=== PATIENT | female | born 2000 | race Caucasian/White ===

== ENCOUNTER 2019-08-13 08:42 | Emergency (ER) | payer OTHER ==
[2019-08-13 08:47] VITALS: BP 127/81; PULSE 103; RESP 18; TEMP 98.4
[2019-08-13] MEDS ORDERED: PROPARACAINE 0.5% OPHTH DROPS 15 ML BTL BOTH EYES STA (08:52)
--- NOTE | 2019-08-13 09:14 | ED ---
Eye Problem HPI - General Chief complaint: Eye Problems Stated complaint: Swollen eye Time Seen by Provider: 08/13/19 08:52 Source: patient, RN notes reviewed, old records reviewed Mode of arrival: ambulatory Limitations: no limitations - History of Present Illness Initial comments: 18 year old female presents with right eye swelling and irritation. She report this has happened for one day. She reports a small pimple on nose and right cheek. She reports she woke up with eye swollen and crusted over, and states htat she had her dog sneeze in her eye yesterday. She denies visual changes. Denies pain with EOM or bright lights. - Related Data Previous Rx's Medication Instructions Recorded Cephalexin [Keflex] 500 mg PO Q8HR #21 cap 08/13/19 Ciprofloxacin Ophth Soln [Ciloxan 1 drops RIGHT EYE Q4HR #1 bottle 08/13/19 0.3% Ophth Soln] Allergies Allergy/AdvReac Type Severity Reaction Status Date / Time No Known Allergies Allergy Verified 08/13/19 08:47 Review of Systems ROS Statement: Those systems with pertinent positive or pertinent negative responses have been documented in the HPI. ROS Other: All systems not noted in ROS Statement are negative. Past Medical History Past Medical History: No Reported History History of Any Multi-Drug Resistant Organisms: None Reported Past Surgical History: No Surgical Hx Reported Past Psychological History: No Psychological Hx Reported Smoking Status: Current every day smoker Past Alcohol Use History: None Reported Past Drug Use History: None Reported General Exam - General Exam Comments Initial Comments: Pleasant 18 year old female, no distress. Limitations: no limitations General appearance: alert, in no apparent distress Head exam: Present: atraumatic, normocephalic, normal inspection Eye exam: Present: normal appearance, PERRL, EOMI, other (minimal right eye erythhema, drainage. Surrounding lower eyelid erythema and edema. Small papule at nose. ). Absent: scleral icterus, conjunctival injection, periorbital swelling ENT exam: Present: normal exam, mucous membranes moist Neck exam: Present: normal inspection. Absent: tenderness, meningismus, lymphadenopathy Respiratory exam: Present: normal lung sounds bilaterally. Absent: respiratory distress, wheezes, rales, rhonchi, stridor Cardiovascular Exam: Present: regular rate, normal rhythm, normal heart sounds. Absent: systolic murmur, diastolic murmur, rubs, gallop, clicks GI/Abdominal exam: Present: soft, normal bowel sounds. Absent: distended, tenderness, guarding, rebound, rigid Neurological exam: Present: alert, oriented X3, CN II-XII intact Psychiatric exam: Present: normal affect, normal mood Skin exam: Present: warm, dry, intact, normal color. Absent: rash Course Vital Signs 08/13/19 08:44 Temperature 98.4 F Pulse Rate 103 H Respiratory 18 Rate Blood Pressure 127/81 O2 Sat by Pulse 100 Oximetry Medical Decision Making - Medical Decision Making 18 year old female with R eye irritation and swelling. Patient has concern for minor periorbital celluitis which could be from pimple on nose. Discussed DC with keflex. PAtient will also use antibiotic eyedrops. Disucssed PCP follow up. Disposition Clinical Impression: Cellulitis of eyelid, Conjunctivitis Disposition: HOME SELF-CARE Condition: Good Instructions (If sedation given, give patient instructions): Periorbital Cellulitis in Adults (ED), Conjunctivitis (ED) Additional Instructions: Please use medication as discussed. Please follow up with family doctor if symptoms have not improved over the next two days. Please return to the emergency room if your symptoms increase or worsen or for any other concerns. Prescriptions: Ciprofloxacin Ophth Soln [Ciloxan 0.3% Ophth Soln] 1 drops RIGHT EYE Q4HR #1 bottle Cephalexin [Keflex] 500 mg PO Q8HR #21 cap Is patient prescribed a controlled substance at d/c from ED?: No Referrals: None,Stated [Primary Care Provider] - 1-2 days Paddy Rogers MD [STAFF PHYSICIAN] - 1-2 days Time of Disposition: 09:13
== END 2019-08-13 09:37 | disposition home or self-care (01) ==
LOC: EC 08:42
DX: H00.032 Abscess of right lower eyelid (principal); H10.9 Unspecified conjunctivitis; R23.8 Other skin changes; F17.200 Nicotine dependence, unspecified, uncomplicated
CPT/HCPCS: 99283

== ENCOUNTER 2019-10-28 15:33 | Emergency (ER) | payer OTHER ==
[2019-10-28] MEDS ORDERED: ONDANSETRON ODT 4 MG TAB PO STA (16:16)
--- NOTE | 2019-10-28 16:18 | ED ---
General Adult HPI - General Chief complaint: Fever Stated complaint: Fever,vomiting Time Seen by Provider: 10/28/19 15:40 Source: patient, RN notes reviewed, old records reviewed Mode of arrival: ambulatory Limitations: no limitations - History of Present Illness Initial comments: This is a 18-year-old female who presents emergency department stating that she vomited 2 times on Saturday slept most of the day yesterday woke up today and was dry heaving most that they just prior to arrival he vomited again. Patient denies any diarrhea. Patient has any fever chills per patient denies any abdominal pain. Patient denies any chest pain difficulty breathing first breath per patient denies being lightheaded or dizzy. Patient states after she vomited she feels pretty good. Patient states she's not she is not sexually active. - Related Data Previous Rx's Medication Instructions Recorded Cephalexin [Keflex] 500 mg PO Q8HR #21 cap 08/13/19 Ciprofloxacin Ophth Soln [Ciloxan 1 drops RIGHT EYE Q4HR #1 bottle 08/13/19 0.3% Ophth Soln] Ondansetron Odt [Zofran Odt] 4 mg PO Q8HR PRN #10 tab 10/28/19 Allergies Allergy/AdvReac Type Severity Reaction Status Date / Time No Known Allergies Allergy Verified 10/28/19 15:43 Review of Systems ROS Statement: Those systems with pertinent positive or pertinent negative responses have been documented in the HPI. ROS Other: All systems not noted in ROS Statement are negative. Past Medical History Past Medical History: No Reported History History of Any Multi-Drug Resistant Organisms: None Reported Past Surgical History: No Surgical Hx Reported Past Psychological History: No Psychological Hx Reported Smoking Status: Current every day smoker Past Alcohol Use History: None Reported Past Drug Use History: None Reported General Exam - General Exam Comments Initial Comments: GENERAL: Patient is well-developed and well-nourished. Patient is nontoxic and well- hydrated and is in no acute distress. ENT: Neck is soft and supple. No significant lymphadenopathy is noted. Oropharynx is clear. Moist mucous membranes. Neck has full range of motion without eliciting any pain. EYES: The sclera were anicteric and conjunctiva were pink and moist. Extraocular movements were intact and pupils were equal round and reactive to light. Eyelids were unremarkable. PULMONARY: Unlabored respirations. Good breath sounds bilaterally. No audible rales rhonchi or wheezing was noted. CARDIOVASCULAR: There is a regular rate and rhythm without any murmurs gallops or rubs. ABDOMEN: Soft and nontender with normal bowel sounds. No palpable organomegaly was noted. There is no palpable pulsatile mass. SKIN: Skin is clear with no lesions or rashes and otherwise unremarkable. NEUROLOGIC: Patient is alert and oriented x3. Cranial nerves II through XII are grossly intact. Motor and sensory are also intact. Normal speech, volume and content. Symmetrical smile. MUSCULOSKELETAL: Normal extremities with adequate strength and full range of motion. LYMPHATICS: No significant lymphadenopathy is noted PSYCHIATRIC: Normal psychiatric evaluation. Limitations: no limitations Course Vital Signs 10/28/19 10/28/19 15:40 16:10 Temperature 98.2 F 99 F Pulse Rate 95 Respiratory 20 Rate Blood Pressure 136/84 O2 Sat by Pulse 97 Oximetry Medical Decision Making - Lab Data Lab Results 10/28/19 Range/Units 15:40 Influenza Type A RNA Not Detected (Not Detectd) Influenza Type B (PCR) Not Detected (Not Detectd) Disposition Clinical Impression: Acute vomiting Disposition: HOME SELF-CARE Condition: Good Prescriptions: Ondansetron Odt [Zofran Odt] 4 mg PO Q8HR PRN #10 tab PRN Reason: Nausea And Vomiting Is patient prescribed a controlled substance at d/c from ED?: No Referrals: None,Stated [Primary Care Provider] - 1-2 days Time of Disposition: 16:17
[2019-10-28 16:32] VITALS: BP 121/81; PULSE 109; RESP 16; TEMP 98.8
== END 2019-10-28 16:32 | disposition home or self-care (01) ==
LOC: EC 15:33
DX: R11.10 Vomiting, unspecified (principal); R50.9 Fever, unspecified; F17.200 Nicotine dependence, unspecified, uncomplicated
CPT/HCPCS: 87502; 99284